=== PATIENT | male | born 1960 | race African-American/Black ===

== ENCOUNTER 2021-06-28 11:02 | Inpatient (IN) | payer OTHER ==
[2021-06-28] MEDS ORDERED: MAGNESIUM HYDROX 2400MG/30ML ORAL SUSPENSION 30 ML CUP PO PRN (13:03)
[2021-06-28] MEDS ORDERED: ONDANSETRON *ODT* 4 MG TABLET SL PRN (13:03)
[2021-06-28] MEDS ORDERED: MAGNESIUM CITRATE 300 ML BOTTLE PO PRN (13:03)
[2021-06-28] MEDS ORDERED: MENTHOL/PHENOL 1 EACH UD MM PRN (13:03)
[2021-06-28] MEDS ORDERED: METHOCARBAMOL 500 MG TABLET PO PRN (13:03)
[2021-06-28] MEDS ORDERED: NICOTINE 10 MG CARTRIDGE (INHALER) IH PRN (13:03)
[2021-06-28] MEDS ORDERED: MAG HYDROX/AL HYDROX/SIMETH 30 ML UNIT-DOSE CUP PO PRN (13:03)
[2021-06-28] MEDS ORDERED: ACETAMINOPHEN 325 MG TABLET (FP) PO PRN ×2 (13:03)
[2021-06-28] MEDS ORDERED: BISMUTH SUBSALICYLATE 262 MG/15 ML BTL PO PRN (13:03)
[2021-06-28] MEDS ORDERED: chlordiazePOXIDE HCL 25 MG CAPSULE PO PRN (13:03)
[2021-06-28] MEDS ORDERED: IBUPROFEN 400 MG TABLET (FP) PO PRN (13:03)
[2021-06-28 13:15] VITALS: BMI 29.5
[2021-06-28 15:12] LABS: HEMATOCRIT 35.6 % (35.4-49); HEMOGLOBIN 12.2 GM/dL (11.7-16.9); MCH 30.4 pg (25.7-33.7); MCHC 34.2 g/dl (32.0-35.9); MEAN PLT VOLUME 10.4 fl (7.5-11.1); PLATELET COUNT 199 10^3/uL (134-434); RBC 3.99 M/mm3 (4.00-5.60); RDW 13.3 % (11.9-15.9)
[2021-06-28 15:23] LABS: CALCIUM 9.1 mg/dL (8.5-10.1)
[2021-06-28 15:24] LABS: ALBUMIN 3.6 g/dl (3.4-5.0); BLOOD UREA NITROGEN 20.4 mg/dL (7-18)
[2021-06-28 15:26] LABS: CREATININE 1.5 mg/dL (0.55-1.3)
[2021-06-28 15:28] LABS: TOT PROT 7.2 g/dl (6.4-8.2)
[2021-06-28 15:30] LABS: BILIRUBIN,TOTAL 0.4 mg/dL (0.2-1)
[2021-06-28] MEDS: hydrOXYzine PAMOATE 25 MG CAPSULE (FP) PO SCH ×3 (15:57→23:00)
[2021-06-28] MEDS: ASPIRIN 81 MG CHEWABLE TABLETS PO SCH (17:51)
[2021-06-28] MEDS: metFORMIN HCL 500 MG TABLET (FP) PO SCH (17:51)
[2021-06-28] MEDS: chlordiazePOXIDE HCL 25 MG CAPSULE PO SCH ×2 (17:51→22:49)
[2021-06-28] MEDS: DIGOXIN 0.125 MG TABLET PO SCH (19:57)
[2021-06-28] MEDS: SPIRONOLACTONE 25 MG TABLET PO SCH (19:57)
[2021-06-28] MEDS: CARVEDILOL 25 MG TABLET (FP) PO SCH (22:49)
[2021-06-28] MEDS: ATORVASTATIN CA 80 MG TABLET (FP) PO SCH (22:49)
[2021-06-28] MEDS: THIAMINE HCL 100 MG TABLET (FP) PO SCH (22:49)
[2021-06-28] MEDS: MELATONIN 5 MG TABLETS PO SCH (23:00)
[2021-06-29] MEDS: chlordiazePOXIDE HCL 25 MG CAPSULE PO SCH ×4 (05:35→22:35)
[2021-06-29] MEDS: hydrOXYzine PAMOATE 25 MG CAPSULE (FP) PO SCH ×5 (05:35→22:36)
[2021-06-29] MEDS: metFORMIN HCL 500 MG TABLET (FP) PO SCH ×2 (06:19→18:05)
[2021-06-29] MEDS: PRENATAL VITAMINS W/ FOLIC ACID TABLET (FP) PO SCH (10:26)
[2021-06-29] MEDS: DIGOXIN 0.125 MG TABLET PO SCH (10:26)
[2021-06-29] MEDS: ASPIRIN 81 MG CHEWABLE TABLETS PO SCH (10:27)
[2021-06-29] MEDS: CARVEDILOL 25 MG TABLET (FP) PO SCH ×2 (10:27→22:35)
[2021-06-29] MEDS: FUROSEMIDE 40 MG TABLET (FP) PO SCH (10:27)
[2021-06-29] MEDS: ATORVASTATIN CA 80 MG TABLET (FP) PO SCH (22:35)
[2021-06-29] MEDS: THIAMINE HCL 100 MG TABLET (FP) PO SCH (22:35)
[2021-06-29] MEDS: MELATONIN 5 MG TABLETS PO SCH (22:36)
[2021-06-30] MEDS: hydrOXYzine PAMOATE 25 MG CAPSULE (FP) PO SCH ×4 (05:19→19:34)
[2021-06-30] MEDS: chlordiazePOXIDE HCL 25 MG CAPSULE PO SCH ×3 (05:19→19:32)
[2021-06-30] MEDS: metFORMIN HCL 500 MG TABLET (FP) PO SCH ×2 (06:10→19:32)
[2021-06-30 10:56] LABS: ALBUMIN 3.5 g/dl (3.4-5.0); BLOOD UREA NITROGEN 17.9 mg/dL (7-18); CALCIUM 9.1 mg/dL (8.5-10.1)
[2021-06-30] MEDS: PRENATAL VITAMINS W/ FOLIC ACID TABLET (FP) PO SCH (10:58)
[2021-06-30 10:59] LABS: CREATININE 1.3 mg/dL (0.55-1.3)
[2021-06-30] MEDS: DIGOXIN 0.125 MG TABLET PO SCH (10:59)
[2021-06-30] MEDS: FUROSEMIDE 40 MG TABLET (FP) PO SCH (10:59)
[2021-06-30 11:00] LABS: TOT PROT 6.8 g/dl (6.4-8.2)
[2021-06-30] MEDS: ASPIRIN 81 MG CHEWABLE TABLETS PO SCH (11:00)
[2021-06-30] MEDS: CARVEDILOL 25 MG TABLET (FP) PO SCH (11:00)
[2021-06-30] MEDS: SPIRONOLACTONE 25 MG TABLET PO SCH (11:00)
[2021-06-30 11:02] LABS: BILIRUBIN,TOTAL 0.6 mg/dL (0.2-1)
[2021-06-30 16:59] VITALS: BP 127/86; PULSE 69; TEMP 98.4
[2021-06-30] MEDS: INSULIN SLIDING SCALE (NOVOLOG) 1 VIAL SQ SCH (19:33)
[2021-07-01] MEDS ORDERED: chlordiazePOXIDE HCL 10 MG CAPSULE PO PRN
[2021-07-01] MEDS: CARVEDILOL 25 MG TABLET (FP) PO SCH (01:05)
[2021-07-01] MEDS: MELATONIN 5 MG TABLETS PO SCH (01:06)
[2021-07-01] MEDS: chlordiazePOXIDE HCL 25 MG CAPSULE PO SCH (01:06)
[2021-07-01] MEDS: ATORVASTATIN CA 80 MG TABLET (FP) PO SCH (01:06)
[2021-07-01] MEDS: THIAMINE HCL 100 MG TABLET (FP) PO SCH (01:07)
[2021-07-01] MEDS: hydrOXYzine PAMOATE 25 MG CAPSULE (FP) PO SCH (01:07)
[2021-07-01] MEDS: INSULIN SLIDING SCALE (NOVOLOG) 1 VIAL SQ SCH (01:07)
[2021-07-01] MEDS ORDERED: chlordiazePOXIDE HCL 10 MG CAPSULE PO SCH (05:00)
[2021-07-02] MEDS ORDERED: chlordiazePOXIDE HCL 10 MG CAPSULE PO SCH (05:00)
[2021-07-03] MEDS ORDERED: chlordiazePOXIDE HCL 10 MG CAPSULE PO ONE (05:00)
== END 2021-07-01 | disposition short-term general hospital (02) | DRG 897 ==
LOC: YASAS 11:02 → Y6N 13:48
PROVIDERS: ADMIT Allergy & Immunology; ATTEND Allergy & Immunology
PROC: HZ2ZZZZ Detoxification Services for Substance Abuse Treatment (ICD-10-PCS; principal; 2021-06-28)
DX: F10.230 Alcohol dependence with withdrawal, uncomplicated (principal); F14.20 Cocaine dependence, uncomplicated; I69.351 Hemiplegia and hemiparesis following cerebral infarction affecting right dominant side; F17.210 Nicotine dependence, cigarettes, uncomplicated; I48.91 Unspecified atrial fibrillation; R06.02 Shortness of breath; E11.65 Type 2 diabetes mellitus with hyperglycemia; R26.2 Difficulty in walking, not elsewhere classified; Z99.89 Dependence on other enabling machines and devices; Z88.8 Allergy status to other drugs, medicaments and biological substances; Z79.84 Long term (current) use of oral hypoglycemic drugs
CPT/HCPCS: 36415; 80053; 82962; 85027; 86780; C9803; U0003; U0005

== ENCOUNTER 2021-06-30 17:10 | Inpatient (IN) | payer OTHER ==
[2021-06-30 17:24] VITALS: BMI 29.5
[2021-06-30] MEDS ORDERED: CEFTRIAXONE 1,000 MG in DEXTROSE 5%-WATER - 50 ML IVPB ONE (18:32)
[2021-06-30] MEDS ORDERED: AZITHROMYCIN IVPB 500 MG in DEXTROSE 5%-WATER - 250 ML IVPB ONE (18:32)
[2021-06-30] MEDS ORDERED: ACETAMINOPHEN 325 MG TABLET (FP) PO ONE (18:35)
[2021-06-30 18:57] LABS: EOS % 2.9 % (0-4.5); HEMATOCRIT 35.9 % (35.4-49); HEMOGLOBIN 12.1 GM/dL (11.7-16.9); LYMPH % 14.7 % (8-40); MCH 30.1 pg (25.7-33.7); MCHC 33.6 g/dl (32.0-35.9); MEAN CELL VOLUME 89.5 fl (80-96); MEAN PLT VOLUME 10.2 fl (7.5-11.1); MONO % 8.7 % (3.8-10.2); NEUT % 72.7 % (42.8-82.8); PLATELET COUNT 173 10^3/uL (134-434); RBC 4.01 M/mm3 (4.00-5.60); RDW 13.6 % (11.9-15.9); VENOUS BASE EXCESS 4.3 mmol/L (-2-2); VENOUS O2 SATURATION 37.7 % (70-80); VENOUS PCO2 56.7 mmHg (38-52); VENOUS PH 7.358 (7.310-7.410)
[2021-06-30] MEDS ORDERED: ACETAMINOPHEN 325 MG TABLET (FP) ONE (19:01)
[2021-06-30] MEDS ORDERED: CEFTRIAXONE 1 GM/50 ML BAG ONE (19:01)
[2021-06-30 19:06] LABS: INR 1.19 (0.83-1.09); PROTHROMBIN TIME (PATIENT) 13.3 SEC (9.7-13.0)
[2021-06-30 19:09] LABS: ACTIVATED PTT 32.8 SECONDS (25.2-36.5)
[2021-06-30 19:20] LABS: SODIUM 143 mmol/L (136-145)
[2021-06-30 19:25] LABS: ALBUMIN 3.6 g/dl (3.4-5.0); BLOOD UREA NITROGEN 19.8 mg/dL (7-18); CALCIUM 9.8 mg/dL (8.5-10.1); CO2 33 mmol/L (21-32); GLUCOSE,RANDOM 160 mg/dL (74-106)
[2021-06-30 19:28] LABS: CREATININE 1.3 mg/dL (0.55-1.3); SGOT/AST 24 U/L (15-37); SGPT/ALT 54 U/L (13-61)
[2021-06-30 19:29] LABS: BILIRUBIN,TOTAL 0.8 mg/dL (0.2-1); TOT PROT 7.2 g/dl (6.4-8.2)
[2021-06-30 19:31] LABS: ALK PHOS 83 U/L (45-117)
[2021-06-30 19:34] LABS: N-TERMINAL BNP 3093.3 pg/ml (5-125)
[2021-06-30 19:49] LABS: ANION GAP 4 MMOL/L (8-16); CHLORIDE 106 mmol/L (98-107)
[2021-06-30] MEDS ORDERED: ASPIRIN 81 MG CHEWABLE TABLETS PO ONE (20:00)
[2021-06-30 20:05] LABS: PLATELET ESTIMATE NORMAL
[2021-06-30] MEDS ORDERED: ASPIRIN 81 MG CHEWABLE TABLETS ONE (20:10)
[2021-06-30] MEDS ORDERED: AZITHROMYCIN IVPB 500 MG/250 ML BAG IVPB ONE (20:10)
[2021-06-30] MEDS ORDERED: FUROSEMIDE 40 MG/4 ML INJECTABLE VIAL IVPUSH ONE (20:14)
[2021-06-30] MEDS ORDERED: FUROSEMIDE 40 MG/4 ML INJECTABLE VIAL ONE (20:18)
[2021-06-30] MEDS ORDERED: chlordiazePOXIDE HCL 10 MG CAPSULE PO PRN ×2 (22:57→23:50)
[2021-07-01 02:12] LABS: COCAINE, UR POSITIVE (NEGATIVE); METHADONE, UR NEGATIVE (NEGATIVE); OPIATES, URI NEGATIVE (NEGATIVE); PHENCYCLIDINE,URINE NEGATIVE (NEGATIVE); URINE AMPHETAMINES NEGATIVE (NEGATIVE); URINE BARBITURATES NEGATIVE (NEGATIVE); URINE BENZODIAZEPINES POSITIVE (NEGATIVE)
[2021-07-01 07:50] LABS: HEMOGLOBIN 11.7 GM/dL (11.7-16.9); LYMPH % 17.9 % (8-40); MCH 30.5 pg (25.7-33.7); MCHC 34.4 g/dl (32.0-35.9); MEAN CELL VOLUME 88.6 fl (80-96); MEAN PLT VOLUME 10.2 fl (7.5-11.1); NEUT % 67.7 % (42.8-82.8); PLATELET COUNT 164 10^3/uL (134-434); RBC 3.84 M/mm3 (4.00-5.60); RDW 13.4 % (11.9-15.9); WHITE BLOOD COUNT 4.9 K/mm3 (4.0-10.0)
[2021-07-01 07:51] LABS: BASO % 1.5 % (0-2.0); EOS % 3.5 % (0-4.5); MONO % 9.4 % (3.8-10.2)
[2021-07-01 08:09] LABS: CHLORIDE 105 mmol/L (98-107); SODIUM 142 mmol/L (136-145)
[2021-07-01 08:16] LABS: ANION GAP 7 MMOL/L (8-16); BLOOD UREA NITROGEN 17.5 mg/dL (7-18); CO2 30 mmol/L (21-32); GLUCOSE,RANDOM 254 mg/dL (74-106); MAGNESIUM 1.8 mg/dL (1.8-2.4)
[2021-07-01 08:18] LABS: SGPT/ALT 49 U/L (13-61)
[2021-07-01 08:19] LABS: CHOLESTEROL 108 mg/dL (50-200); CREATININE 1.4 mg/dL (0.55-1.3); PHOSPHOROUS 3.6 mg/dL (2.5-4.9); SGOT/AST 23 U/L (15-37)
[2021-07-01 08:20] LABS: BILIRUBIN,TOTAL 0.8 mg/dL (0.2-1); LDL CHOLESTEROL (ONLY SJRH) 55 mg/dL (5-100); TOT PROT 6.6 g/dl (6.4-8.2); TRIGLYCERIDES 119 mg/dL (0-150)
[2021-07-01 08:21] LABS: ALK PHOS 70 U/L (45-117); HDL CHOLESTEROL 36 mg/dL (40-60)
[2021-07-01] MEDS ORDERED: CYANOCOBALAMIN (VITAMIN B-12) 1000 MCG/1 ML VIAL IM ONE (08:30)
[2021-07-01] MEDS ORDERED: ENOXAPARIN NA (PORCINE) 40 MG/0.4 ML DISP.SYRIN SQ SCH (10:00)
[2021-07-01] MEDS ORDERED: FUROSEMIDE 40 MG TABLET (FP) ONE (10:08)
[2021-07-01] MEDS ORDERED: DIGOXIN 0.125 MG TABLET ONE (10:08)
[2021-07-01] MEDS ORDERED: FOLIC ACID 1 MG TABLET (FP) ONE (10:08)
[2021-07-01] MEDS ORDERED: ASPIRIN 81 MG CHEWABLE TABLETS ONE (10:08)
[2021-07-01] MEDS ORDERED: THIAMINE HCL 100 MG TABLET (FP) ONE (10:08)
[2021-07-01] MEDS ORDERED: HEPARIN NA (PORCINE) 5,000 UNITS/ML 1ML VIAL ONE (10:09)
[2021-07-01] MEDS ORDERED: INSULIN SLIDING SCALE (NOVOLOG) 1 VIAL SQ ONE (10:09)
[2021-07-01] MEDS: ASPIRIN 81 MG CHEWABLE TABLETS PO SCH (10:30)
[2021-07-01] MEDS: FOLIC ACID 1 MG TABLET (FP) PO SCH (10:30)
[2021-07-01] MEDS: FUROSEMIDE 40 MG TABLET (FP) PO SCH (10:30)
[2021-07-01] MEDS: THIAMINE HCL 100 MG TABLET (FP) PO SCH (10:30)
[2021-07-01] MEDS: CARVEDILOL 25 MG TABLET (FP) PO SCH (10:30)
[2021-07-01] MEDS: DIGOXIN 0.125 MG TABLET PO SCH (10:30)
[2021-07-01] MEDS: NICOTINE 21 MG/24 HOURS TOPICAL PATCH TD SCH (10:30)
[2021-07-01] MEDS: INSULIN SLIDING SCALE (NOVOLOG) 1 VIAL SQ SCH ×2 (11:16→17:33)
[2021-07-01] MEDS: HEPARIN NA (PORCINE) 5,000 UNITS/ML 1ML VIAL SQ SCH (14:30)
[2021-07-01] MEDS ORDERED: chlordiazePOXIDE HCL 10 MG CAPSULE ONE (17:27)
[2021-07-01] MEDS ORDERED: CARVEDILOL 12.5 MG TABLET (FP) ONE (23:53)
[2021-07-01] MEDS ORDERED: ATORVASTATIN CA 80 MG TABLET (FP) ONE (23:53)
[2021-07-02] MEDS: ATORVASTATIN CA 80 MG TABLET (FP) PO SCH ×2 (00:01→21:35)
[2021-07-02] MEDS: CARVEDILOL 25 MG TABLET (FP) PO SCH ×3 (00:16→21:34)
[2021-07-02] MEDS: HEPARIN NA (PORCINE) 5,000 UNITS/ML 1ML VIAL SQ SCH ×5 (01:30→21:34)
[2021-07-02] MEDS: ALBUTEROL SO4 2.5/IPRATROPIUM 0.5 INH SOL 3 ML VIAL.NEB. NEB SCH ×6 (01:30→20:48)
[2021-07-02] MEDS: INSULIN SLIDING SCALE (NOVOLOG) 1 VIAL SQ SCH ×6 (01:30→21:41)
[2021-07-02] MEDS: SPIRONOLACTONE 25 MG TABLET PO SCH (01:31)
[2021-07-02] MEDS ORDERED: HEPARIN NA (PORCINE) 5,000 UNITS/ML 1ML VIAL ONE (01:50)
[2021-07-02 07:24] LABS: HEMOGLOBIN 11.7 GM/dL (11.7-16.9); MCH 30.2 pg (25.7-33.7); MCHC 34.3 g/dl (32.0-35.9); MEAN CELL VOLUME 88.1 fl (80-96); PLATELET COUNT 166 10^3/uL (134-434); RBC 3.86 M/mm3 (4.00-5.60); RDW 13.3 % (11.9-15.9); WHITE BLOOD COUNT 4.3 K/mm3 (4.0-10.0)
[2021-07-02 07:30] LABS: CALCIUM 8.9 mg/dL (8.5-10.1)
[2021-07-02 07:31] LABS: BLOOD UREA NITROGEN 19.1 mg/dL (7-18)
[2021-07-02 07:34] LABS: CREATININE 1.5 mg/dL (0.55-1.3)
[2021-07-02 07:35] LABS: BILIRUBIN,TOTAL 0.7 mg/dL (0.2-1); TOT PROT 6.4 g/dl (6.4-8.2)
[2021-07-02] MEDS ORDERED: PT OWN MED DRAWER 7, Y5N ONE ×2 (08:47→18:32)
[2021-07-02] MEDS ORDERED: FLU VACC QS2021-22(6MOS UP)/PF 60 MCG/0.5 ML SYRINGE IM ONE (10:00)
[2021-07-02] MEDS: DIGOXIN 0.125 MG TABLET PO SCH (10:05)
[2021-07-02] MEDS: THIAMINE HCL 100 MG TABLET (FP) PO SCH (10:05)
[2021-07-02] MEDS: FOLIC ACID 1 MG TABLET (FP) PO SCH (10:05)
[2021-07-02] MEDS: ASPIRIN 81 MG CHEWABLE TABLETS PO SCH (10:05)
[2021-07-02] MEDS: FUROSEMIDE 40 MG TABLET (FP) PO SCH (10:05)
[2021-07-02] MEDS: NICOTINE 21 MG/24 HOURS TOPICAL PATCH TD SCH (10:06)
[2021-07-02] MEDS ORDERED: MAGNESIUM SULF 50% (8.12 MEQ/2 ML-1 GM VIAL) IVPB ONE (10:44)
[2021-07-02] MEDS: FUROSEMIDE 40 MG/4 ML INJECTABLE VIAL IVPUSH SCH (14:13)
[2021-07-03] MEDS: SPIRONOLACTONE 25 MG TABLET PO SCH (00:39)
[2021-07-03] MEDS: HEPARIN NA (PORCINE) 5,000 UNITS/ML 1ML VIAL SQ SCH ×3 (06:43→21:51)
[2021-07-03] MEDS: FUROSEMIDE 40 MG/4 ML INJECTABLE VIAL IVPUSH SCH ×2 (06:43→13:37)
[2021-07-03] MEDS: INSULIN SLIDING SCALE (NOVOLOG) 1 VIAL SQ SCH ×4 (06:43→21:56)
[2021-07-03 07:31] LABS: HEMATOCRIT 34.7 % (35.4-49); MCH 30.4 pg (25.7-33.7); MCHC 34.5 g/dl (32.0-35.9); MEAN CELL VOLUME 88.1 fl (80-96); MEAN PLT VOLUME 9.8 fl (7.5-11.1); PLATELET COUNT 161 10^3/uL (134-434); RBC 3.94 M/mm3 (4.00-5.60); WHITE BLOOD COUNT 4.2 K/mm3 (4.0-10.0)
[2021-07-03] MEDS: ALBUTEROL SO4 2.5/IPRATROPIUM 0.5 INH SOL 3 ML VIAL.NEB. NEB SCH ×4 (07:45→21:45)
[2021-07-03 07:53] LABS: BLOOD UREA NITROGEN 20.1 mg/dL (7-18); CALCIUM 8.8 mg/dL (8.5-10.1); MAGNESIUM 2.2 mg/dL (1.8-2.4)
[2021-07-03 07:54] LABS: ALBUMIN 3.3 g/dl (3.4-5.0)
[2021-07-03 07:57] LABS: CREATININE 1.3 mg/dL (0.55-1.3); PHOSPHOROUS 3.6 mg/dL (2.5-4.9)
[2021-07-03 07:58] LABS: BILIRUBIN,TOTAL 0.7 mg/dL (0.2-1); TOT PROT 6.6 g/dl (6.4-8.2)
[2021-07-03] MEDS: ASPIRIN 81 MG CHEWABLE TABLETS PO SCH (09:39)
[2021-07-03] MEDS: THIAMINE HCL 100 MG TABLET (FP) PO SCH (09:39)
[2021-07-03] MEDS: NICOTINE 21 MG/24 HOURS TOPICAL PATCH TD SCH (09:40)
[2021-07-03] MEDS: DIGOXIN 0.125 MG TABLET PO SCH (09:40)
[2021-07-03] MEDS: CARVEDILOL 25 MG TABLET (FP) PO SCH ×2 (09:42→21:52)
[2021-07-03] MEDS: FOLIC ACID 1 MG TABLET (FP) PO SCH (10:08)
[2021-07-03] MEDS: ATORVASTATIN CA 80 MG TABLET (FP) PO SCH (21:52)
[2021-07-04] MEDS: HEPARIN NA (PORCINE) 5,000 UNITS/ML 1ML VIAL SQ SCH ×3 (06:12→22:05)
[2021-07-04] MEDS: INSULIN SLIDING SCALE (NOVOLOG) 1 VIAL SQ SCH ×5 (06:12→22:21)
[2021-07-04] MEDS: FUROSEMIDE 40 MG/4 ML INJECTABLE VIAL IVPUSH SCH ×2 (06:12→15:02)
[2021-07-04 07:35] LABS: ALBUMIN 3.2 g/dl (3.4-5.0); BLOOD UREA NITROGEN 19.5 mg/dL (7-18); CALCIUM 8.7 mg/dL (8.5-10.1)
[2021-07-04 07:38] LABS: CREATININE 1.5 mg/dL (0.55-1.3)
[2021-07-04 07:40] LABS: BILIRUBIN,TOTAL 0.8 mg/dL (0.2-1)
[2021-07-04 08:15] LABS: HEMATOCRIT 35.9 % (35.4-49); HEMOGLOBIN 12.5 GM/dL (11.7-16.9); MCH 30.6 pg (25.7-33.7); MCHC 34.8 g/dl (32.0-35.9); MEAN PLT VOLUME 9.9 fl (7.5-11.1); PLATELET COUNT 166 10^3/uL (134-434); RBC 4.08 M/mm3 (4.00-5.60); RDW 13.1 % (11.9-15.9); WHITE BLOOD COUNT 3.4 K/mm3 (4.0-10.0)
[2021-07-04] MEDS: ALBUTEROL SO4 2.5/IPRATROPIUM 0.5 INH SOL 3 ML VIAL.NEB. NEB SCH ×4 (08:30→20:55)
[2021-07-04] MEDS: ASPIRIN 81 MG CHEWABLE TABLETS PO SCH (10:29)
[2021-07-04] MEDS: THIAMINE HCL 100 MG TABLET (FP) PO SCH (10:30)
[2021-07-04] MEDS: FOLIC ACID 1 MG TABLET (FP) PO SCH (10:30)
[2021-07-04] MEDS: NICOTINE 21 MG/24 HOURS TOPICAL PATCH TD SCH (10:30)
[2021-07-04] MEDS: DIGOXIN 0.125 MG TABLET PO SCH (10:30)
[2021-07-04] MEDS: CARVEDILOL 25 MG TABLET (FP) PO SCH ×2 (10:30→22:06)
[2021-07-04] MEDS ORDERED: ACETAMINOPHEN 325 MG TABLET (FP) PO PRN (11:18)
[2021-07-04] MEDS: ATORVASTATIN CA 80 MG TABLET (FP) PO SCH (22:06)
[2021-07-05] MEDS: FUROSEMIDE 40 MG/4 ML INJECTABLE VIAL IVPUSH SCH ×2 (05:42→14:17)
[2021-07-05] MEDS: HEPARIN NA (PORCINE) 5,000 UNITS/ML 1ML VIAL SQ SCH ×3 (05:52→21:20)
[2021-07-05] MEDS: INSULIN SLIDING SCALE (NOVOLOG) 1 VIAL SQ SCH ×4 (06:33→23:00)
[2021-07-05 07:13] LABS: HEMATOCRIT 36.5 % (35.4-49); HEMOGLOBIN 12.5 GM/dL (11.7-16.9); MCH 30.4 pg (25.7-33.7); MCHC 34.3 g/dl (32.0-35.9); MEAN CELL VOLUME 88.7 fl (80-96); MEAN PLT VOLUME 10.2 fl (7.5-11.1); PLATELET COUNT 184 10^3/uL (134-434); RBC 4.12 M/mm3 (4.00-5.60); RDW 13.2 % (11.9-15.9); WHITE BLOOD COUNT 3.2 K/mm3 (4.0-10.0)
[2021-07-05 07:33] LABS: BLOOD UREA NITROGEN 27.6 mg/dL (7-18); MAGNESIUM 2.3 mg/dL (1.8-2.4)
[2021-07-05 07:34] LABS: ALBUMIN 3.2 g/dl (3.4-5.0)
[2021-07-05 07:36] LABS: PHOSPHOROUS 4.1 mg/dL (2.5-4.9)
[2021-07-05 07:37] LABS: CREATININE 1.4 mg/dL (0.55-1.3)
[2021-07-05 07:38] LABS: TOT PROT 6.7 g/dl (6.4-8.2)
[2021-07-05 08:05] LABS: BILIRUBIN,TOTAL 0.7 mg/dL (0.2-1)
[2021-07-05] MEDS: ALBUTEROL SO4 2.5/IPRATROPIUM 0.5 INH SOL 3 ML VIAL.NEB. NEB SCH ×4 (09:00→20:27)
[2021-07-05] MEDS: ASPIRIN 81 MG CHEWABLE TABLETS PO SCH (10:30)
[2021-07-05] MEDS: CARVEDILOL 25 MG TABLET (FP) PO SCH ×2 (10:30→21:20)
[2021-07-05] MEDS: NICOTINE 21 MG/24 HOURS TOPICAL PATCH TD SCH (10:30)
[2021-07-05] MEDS: THIAMINE HCL 100 MG TABLET (FP) PO SCH (10:30)
[2021-07-05] MEDS: DIGOXIN 0.125 MG TABLET PO SCH (10:31)
[2021-07-05] MEDS: FOLIC ACID 1 MG TABLET (FP) PO SCH (10:31)
[2021-07-05] MEDS: SPIRONOLACTONE 25 MG TABLET PO SCH (12:38)
[2021-07-05] MEDS: hydrALAZINE HCL 25 MG TABLET (FP) PO SCH ×2 (17:30→21:20)
[2021-07-05] MEDS: ATORVASTATIN CA 80 MG TABLET (FP) PO SCH (21:20)
[2021-07-06] MEDS: SPIRONOLACTONE 25 MG TABLET PO SCH (00:41)
[2021-07-06] MEDS: HEPARIN NA (PORCINE) 5,000 UNITS/ML 1ML VIAL SQ SCH ×3 (06:36→22:20)
[2021-07-06] MEDS: INSULIN SLIDING SCALE (NOVOLOG) 1 VIAL SQ SCH ×4 (06:37→22:21)
[2021-07-06] MEDS: ALBUTEROL SO4 2.5/IPRATROPIUM 0.5 INH SOL 3 ML VIAL.NEB. NEB SCH ×4 (07:40→20:30)
[2021-07-06] MEDS: NICOTINE 21 MG/24 HOURS TOPICAL PATCH TD SCH (09:41)
[2021-07-06] MEDS: ISOSORBIDE MONONITRATE 30 MG TAB.SR.24H (FP) PO SCH (09:41)
[2021-07-06] MEDS: DIGOXIN 0.125 MG TABLET PO SCH (09:42)
[2021-07-06] MEDS: hydrALAZINE HCL 25 MG TABLET (FP) PO SCH ×4 (09:42→22:20)
[2021-07-06] MEDS: ASPIRIN 81 MG CHEWABLE TABLETS PO SCH (09:43)
[2021-07-06] MEDS: CARVEDILOL 25 MG TABLET (FP) PO SCH ×2 (09:43→22:20)
[2021-07-06] MEDS: THIAMINE HCL 100 MG TABLET (FP) PO SCH (09:43)
[2021-07-06] MEDS: FOLIC ACID 1 MG TABLET (FP) PO SCH (09:44)
[2021-07-06] MEDS: FUROSEMIDE 40 MG TABLET (FP) PO SCH (09:44)
[2021-07-06] MEDS: ATORVASTATIN CA 80 MG TABLET (FP) PO SCH (22:21)
[2021-07-07] MEDS: HEPARIN NA (PORCINE) 5,000 UNITS/ML 1ML VIAL SQ SCH ×2 (06:28→15:08)
[2021-07-07] MEDS: INSULIN SLIDING SCALE (NOVOLOG) 1 VIAL SQ SCH ×2 (06:28→12:23)
[2021-07-07] MEDS: ALBUTEROL SO4 2.5/IPRATROPIUM 0.5 INH SOL 3 ML VIAL.NEB. NEB SCH ×3 (07:43→15:20)
[2021-07-07] MEDS ORDERED: PT OWN MED DRAWER 7, Y5N ONE (11:14)
[2021-07-07] MEDS: ISOSORBIDE MONONITRATE 30 MG TAB.SR.24H (FP) PO SCH ×2 (11:23→12:19)
[2021-07-07] MEDS: ASPIRIN 81 MG CHEWABLE TABLETS PO SCH (11:23)
[2021-07-07] MEDS: FOLIC ACID 1 MG TABLET (FP) PO SCH (11:23)
[2021-07-07] MEDS: hydrALAZINE HCL 25 MG TABLET (FP) PO SCH ×2 (11:23→15:08)
[2021-07-07] MEDS: CARVEDILOL 25 MG TABLET (FP) PO SCH (11:23)
[2021-07-07] MEDS: DIGOXIN 0.125 MG TABLET PO SCH (11:24)
[2021-07-07] MEDS: FUROSEMIDE 40 MG TABLET (FP) PO SCH (11:30)
[2021-07-07] MEDS: THIAMINE HCL 100 MG TABLET (FP) PO SCH (11:30)
[2021-07-07] MEDS: NICOTINE 21 MG/24 HOURS TOPICAL PATCH TD SCH (11:30)
[2021-07-07] MEDS: SPIRONOLACTONE 25 MG TABLET PO SCH (12:19)
[2021-07-07 14:00] VITALS: TEMP 98
[2021-07-07 16:15] VITALS: BP 120/74; PULSE 78
== END 2021-07-07 17:56 | disposition home or self-care (01) | DRG 280 ==
LOC: JER 17:10 → JERBED 21:06 → INTOOBSV 21:06 → J4W 07-02 03:01 → OBSVTOIN 07-02 14:49
PROVIDERS: ATTEND Internal Medicine
DX: I13.0 Hypertensive heart and chronic kidney disease with heart failure and stage 1 through stage 4 chronic kidney disease, or unspecified chronic kidney disease (principal); I21.A1 Myocardial infarction type 2; J96.01 Acute respiratory failure with hypoxia; I50.33 Acute on chronic diastolic (congestive) heart failure; I69.351 Hemiplegia and hemiparesis following cerebral infarction affecting right dominant side; J44.1 Chronic obstructive pulmonary disease with (acute) exacerbation; J81.1 Chronic pulmonary edema; I42.8 Other cardiomyopathies; E11.9 Type 2 diabetes mellitus without complications; F14.10 Cocaine abuse, uncomplicated; F10.10 Alcohol abuse, uncomplicated; I48.91 Unspecified atrial fibrillation; R91.1 Solitary pulmonary nodule; N43.3 Hydrocele, unspecified; R76.12 Nonspecific reaction to cell mediated immunity measurement of gamma interferon antigen response without active tuberculosis; F17.210 Nicotine dependence, cigarettes, uncomplicated; I69.391 Dysphagia following cerebral infarction; N50.9 Disorder of male genital organs, unspecified; E11.22 Type 2 diabetes mellitus with diabetic chronic kidney disease; N18.9 Chronic kidney disease, unspecified
CPT/HCPCS: 36415; 71045-TC-FY; 71250-TC; 76705-TC; 76870-TC; 80053; 80061; 80162; 80307; 82105; 82550; 82607; 82803; 82962; 83036; 83615; 83735; 83880; 84100; 84484; 84702; 85025; 85027; 85610; 85730; 86480; 87804; 90686; 93005; 93010; 93306-TC; 94640; 99285-25; C9803; G0008; G0378; J1644; U0003; U0005

== ENCOUNTER 2021-07-07 17:43 | Inpatient (IN) | payer OTHER ==
[2021-07-07] MEDS ORDERED: guaiFENesin 200 MG/10 ML 10 ML UNIT-DOSE CUPS PO PRN (19:29)
[2021-07-07] MEDS ORDERED: MAGNESIUM CITRATE 300 ML BOTTLE PO PRN (19:29)
[2021-07-07] MEDS ORDERED: MAGNESIUM HYDROX 2400MG/30ML ORAL SUSPENSION 30 ML CUP PO PRN (19:29)
[2021-07-07] MEDS ORDERED: LOPERAMIDE HCL 2 MG CAPSULE PO PRN (19:29)
[2021-07-07] MEDS ORDERED: P-EPHED 60MG/TRIPROLIDI 2.5MG TABLET PO PRN (19:29)
[2021-07-07] MEDS ORDERED: MAG HYDROX/AL HYDROX/SIMETH 30 ML UNIT-DOSE CUP PO PRN (19:29)
[2021-07-07] MEDS ORDERED: hydrOXYzine PAMOATE 25 MG CAPSULE (FP) PO PRN (19:29)
[2021-07-07 20:16] VITALS: BMI 28.2
[2021-07-08] MEDS: INSULIN SLIDING SCALE (NOVOLOG) 1 VIAL SQ SCH ×3 (00:34→17:05)
[2021-07-08] MEDS: ATORVASTATIN CA 80 MG TABLET (FP) PO SCH ×2 (00:35→22:11)
[2021-07-08] MEDS: hydrALAZINE HCL 25 MG TABLET (FP) PO SCH ×5 (00:35→22:14)
[2021-07-08] MEDS: SPIRONOLACTONE 25 MG TABLET PO SCH (00:35)
[2021-07-08] MEDS: THIAMINE HCL 100 MG TABLET (FP) PO SCH ×2 (00:36→22:10)
[2021-07-08] MEDS: MELATONIN 5 MG TABLETS PO SCH ×2 (00:36→22:10)
[2021-07-08] MEDS: CARVEDILOL 25 MG TABLET (FP) PO SCH ×3 (01:14→22:13)
[2021-07-08] MEDS ORDERED: INSULIN (NOVOLOG) ASPART 100 UNITS/ML 10ML VIAL ONE ×3 (02:55→17:00)
[2021-07-08] MEDS: metFORMIN HCL 500 MG TABLET (FP) PO SCH ×2 (06:51→17:03)
[2021-07-08] MEDS ORDERED: FUROSEMIDE 40 MG TABLET (FP) PO SCH (10:00)
[2021-07-08] MEDS: ASPIRIN 81 MG CHEWABLE TABLETS PO SCH (10:37)
[2021-07-08] MEDS: NICOTINE 7 MG/24 HOURS TOPICAL PATCH TD SCH (10:40)
[2021-07-08] MEDS: PRENATAL VITAMINS W/ FOLIC ACID TABLET (FP) PO SCH (10:44)
[2021-07-08] MEDS: ISOSORBIDE MONONITRATE 30 MG TAB.SR.24H (FP) PO SCH (11:29)
[2021-07-08] MEDS: DIGOXIN 0.125 MG TABLET PO SCH (11:30)
[2021-07-08] MEDS: glipiZIDE-XL 2.5 MG TAB.ER.24 PO SCH ×2 (12:15→17:03)
[2021-07-09] MEDS: metFORMIN HCL 500 MG TABLET (FP) PO SCH ×2 (06:27→16:59)
[2021-07-09] MEDS: glipiZIDE-XL 2.5 MG TAB.ER.24 PO SCH ×2 (06:28→17:00)
[2021-07-09] MEDS: INSULIN SLIDING SCALE (NOVOLOG) 1 VIAL SQ SCH ×2 (06:29→16:57)
[2021-07-09] MEDS: FUROSEMIDE 40 MG TABLET (FP) PO SCH (06:30)
[2021-07-09] MEDS ORDERED: PT OWN MED DRAWER 7, Y5N ONE (09:34)
[2021-07-09] MEDS: hydrALAZINE HCL 25 MG TABLET (FP) PO SCH ×4 (09:50→21:15)
[2021-07-09] MEDS: CARVEDILOL 25 MG TABLET (FP) PO SCH ×2 (09:50→21:14)
[2021-07-09] MEDS: PRENATAL VITAMINS W/ FOLIC ACID TABLET (FP) PO SCH (09:50)
[2021-07-09] MEDS: ASPIRIN 81 MG CHEWABLE TABLETS PO SCH (09:50)
[2021-07-09] MEDS: DIGOXIN 0.125 MG TABLET PO SCH (09:51)
[2021-07-09] MEDS: NICOTINE 7 MG/24 HOURS TOPICAL PATCH TD SCH (09:52)
[2021-07-09] MEDS: ISOSORBIDE MONONITRATE 30 MG TAB.SR.24H (FP) PO SCH (09:52)
[2021-07-09 16:08] LABS: EPI CELLS 1 /uL (0-25.1); HYALINE CASTS 1 /uL (0-3.1); URINE APPEARANCE CLEAR; URINE BACTERIA 1 /uL (0-1359); URINE BILIRUBIN NEGATIVE (NEGATIVE); URINE COLOR YELLOW; URINE GLUCOSE (UA) TRACE (NEGATIVE); URINE KETONE NEGATIVE (NEGATIVE); URINE LEUK ESTERASE TRACE (NEGATIVE); URINE NITRITE NEGATIVE (NEGATIVE); URINE PROTEIN NEGATIVE (NEGATIVE); URINE RBC 0 /uL (0-23.9); URINE UROBILINOGEN 0.2 mg/dL (0.2-1.0); URINE WBC 9 /uL (0-25.8)
[2021-07-09] MEDS ORDERED: INSULIN (NOVOLOG) ASPART 100 UNITS/ML 10ML VIAL ONE (16:53)
[2021-07-09] MEDS: SPIRONOLACTONE 25 MG TABLET PO SCH (18:49)
[2021-07-09] MEDS ORDERED: ATORVASTATIN CA 40 MG TABLET (FP) ONE (19:14)
[2021-07-09] MEDS: ATORVASTATIN CA 80 MG TABLET (FP) PO SCH (21:14)
[2021-07-09] MEDS: MELATONIN 5 MG TABLETS PO SCH (21:14)
[2021-07-09] MEDS: THIAMINE HCL 100 MG TABLET (FP) PO SCH (21:14)
[2021-07-10] MEDS: FUROSEMIDE 40 MG TABLET (FP) PO SCH (06:42)
[2021-07-10] MEDS: metFORMIN HCL 500 MG TABLET (FP) PO SCH ×2 (06:43→18:02)
[2021-07-10] MEDS: glipiZIDE-XL 2.5 MG TAB.ER.24 PO SCH ×2 (06:43→17:59)
[2021-07-10] MEDS: INSULIN SLIDING SCALE (NOVOLOG) 1 VIAL SQ SCH ×2 (06:43→17:59)
[2021-07-10] MEDS: PRENATAL VITAMINS W/ FOLIC ACID TABLET (FP) PO SCH (10:12)
[2021-07-10] MEDS: ISOSORBIDE MONONITRATE 30 MG TAB.SR.24H (FP) PO SCH (10:13)
[2021-07-10] MEDS: CARVEDILOL 25 MG TABLET (FP) PO SCH ×2 (10:13→21:06)
[2021-07-10] MEDS: hydrALAZINE HCL 25 MG TABLET (FP) PO SCH ×4 (10:13→21:06)
[2021-07-10] MEDS: DIGOXIN 0.125 MG TABLET PO SCH (10:13)
[2021-07-10] MEDS: ASPIRIN 81 MG CHEWABLE TABLETS PO SCH (10:13)
[2021-07-10 10:50] LABS: BLOOD UREA NITROGEN 23.4 mg/dL (7-18)
[2021-07-10 10:53] LABS: CREATININE 1.3 mg/dL (0.55-1.3)
[2021-07-10] MEDS: NICOTINE 7 MG/24 HOURS TOPICAL PATCH TD SCH (11:46)
[2021-07-10] MEDS ORDERED: ATORVASTATIN CA 40 MG TABLET (FP) ONE (19:25)
[2021-07-10] MEDS: MELATONIN 5 MG TABLETS PO SCH (21:06)
[2021-07-10] MEDS: THIAMINE HCL 100 MG TABLET (FP) PO SCH (21:06)
[2021-07-10] MEDS: ATORVASTATIN CA 80 MG TABLET (FP) PO SCH (21:06)
[2021-07-11] MEDS: FUROSEMIDE 40 MG TABLET (FP) PO SCH (07:05)
[2021-07-11] MEDS ORDERED: INSULIN (NOVOLOG) ASPART 100 UNITS/ML 10ML VIAL ONE ×2 (07:06→14:50)
[2021-07-11] MEDS: glipiZIDE-XL 2.5 MG TAB.ER.24 PO SCH ×2 (07:06→17:01)
[2021-07-11] MEDS: metFORMIN HCL 500 MG TABLET (FP) PO SCH ×2 (07:06→17:01)
[2021-07-11] MEDS: INSULIN SLIDING SCALE (NOVOLOG) 1 VIAL SQ SCH ×2 (07:07→17:04)
[2021-07-11] MEDS ORDERED: PT OWN MED DRAWER 7, Y5N ONE (08:41)
[2021-07-11] MEDS: ASPIRIN 81 MG CHEWABLE TABLETS PO SCH (09:50)
[2021-07-11] MEDS: hydrALAZINE HCL 25 MG TABLET (FP) PO SCH ×4 (09:50→21:12)
[2021-07-11] MEDS: CARVEDILOL 25 MG TABLET (FP) PO SCH ×2 (09:50→21:11)
[2021-07-11] MEDS: PRENATAL VITAMINS W/ FOLIC ACID TABLET (FP) PO SCH (09:50)
[2021-07-11] MEDS: DIGOXIN 0.125 MG TABLET PO SCH (09:51)
[2021-07-11] MEDS: ISOSORBIDE MONONITRATE 30 MG TAB.SR.24H (FP) PO SCH (09:51)
[2021-07-11] MEDS: NICOTINE 7 MG/24 HOURS TOPICAL PATCH TD SCH (09:56)
[2021-07-11] MEDS: ACETAMINOPHEN 325 MG TABLET (FP) PO PRN ×2 (12:45→17:01)
[2021-07-11] MEDS ORDERED: ATORVASTATIN CA 40 MG TABLET (FP) ONE (19:17)
[2021-07-11] MEDS: ATORVASTATIN CA 80 MG TABLET (FP) PO SCH (21:12)
[2021-07-11] MEDS: MELATONIN 5 MG TABLETS PO SCH (21:12)
[2021-07-11] MEDS: THIAMINE HCL 100 MG TABLET (FP) PO SCH (21:12)
[2021-07-12] MEDS: FUROSEMIDE 40 MG TABLET (FP) PO SCH (06:38)
[2021-07-12] MEDS: metFORMIN HCL 500 MG TABLET (FP) PO SCH ×2 (06:38→17:28)
[2021-07-12] MEDS: glipiZIDE-XL 2.5 MG TAB.ER.24 PO SCH ×2 (06:38→17:28)
[2021-07-12] MEDS: INSULIN SLIDING SCALE (NOVOLOG) 1 VIAL SQ SCH ×2 (06:40→17:29)
[2021-07-12] MEDS: ASPIRIN 81 MG CHEWABLE TABLETS PO SCH (09:40)
[2021-07-12] MEDS: CARVEDILOL 25 MG TABLET (FP) PO SCH ×2 (09:40→21:47)
[2021-07-12] MEDS: hydrALAZINE HCL 25 MG TABLET (FP) PO SCH ×4 (09:40→21:47)
[2021-07-12] MEDS: PRENATAL VITAMINS W/ FOLIC ACID TABLET (FP) PO SCH (09:40)
[2021-07-12] MEDS: NICOTINE 7 MG/24 HOURS TOPICAL PATCH TD SCH (09:40)
[2021-07-12] MEDS: DIGOXIN 0.125 MG TABLET PO SCH (09:41)
[2021-07-12] MEDS: ISOSORBIDE MONONITRATE 30 MG TAB.SR.24H (FP) PO SCH (09:41)
[2021-07-12] MEDS: ACETAMINOPHEN 325 MG TABLET (FP) PO PRN ×3 (09:42→21:48)
[2021-07-12] MEDS ORDERED: COLLOIDAL OATMEAL 1 BAR EACH TP PRN (09:52)
[2021-07-12] MEDS: SPIRONOLACTONE 25 MG TABLET PO SCH (19:06)
[2021-07-12] MEDS ORDERED: ATORVASTATIN CA 40 MG TABLET (FP) ONE (19:23)
[2021-07-12] MEDS: THIAMINE HCL 100 MG TABLET (FP) PO SCH (21:46)
[2021-07-12] MEDS: ATORVASTATIN CA 80 MG TABLET (FP) PO SCH (21:46)
[2021-07-12] MEDS: MELATONIN 5 MG TABLETS PO SCH (21:47)
[2021-07-13] MEDS: FUROSEMIDE 40 MG TABLET (FP) PO SCH (06:47)
[2021-07-13] MEDS: metFORMIN HCL 500 MG TABLET (FP) PO SCH ×2 (06:47→16:53)
[2021-07-13] MEDS: glipiZIDE-XL 2.5 MG TAB.ER.24 PO SCH ×2 (06:48→16:54)
[2021-07-13] MEDS: INSULIN SLIDING SCALE (NOVOLOG) 1 VIAL SQ SCH ×2 (06:48→16:56)
[2021-07-13] MEDS: ACETAMINOPHEN 325 MG TABLET (FP) PO PRN ×3 (09:41→21:15)
[2021-07-13] MEDS: ASPIRIN 81 MG CHEWABLE TABLETS PO SCH (09:42)
[2021-07-13] MEDS: hydrALAZINE HCL 25 MG TABLET (FP) PO SCH ×4 (09:43→21:14)
[2021-07-13] MEDS: DIGOXIN 0.125 MG TABLET PO SCH (09:43)
[2021-07-13] MEDS: ISOSORBIDE MONONITRATE 30 MG TAB.SR.24H (FP) PO SCH (09:43)
[2021-07-13] MEDS: CARVEDILOL 25 MG TABLET (FP) PO SCH ×2 (09:43→21:14)
[2021-07-13] MEDS: NICOTINE 7 MG/24 HOURS TOPICAL PATCH TD SCH (09:44)
[2021-07-13] MEDS: PRENATAL VITAMINS W/ FOLIC ACID TABLET (FP) PO SCH (09:45)
[2021-07-13] MEDS: THIAMINE HCL 100 MG TABLET (FP) PO SCH (21:14)
[2021-07-13] MEDS: ATORVASTATIN CA 80 MG TABLET (FP) PO SCH (21:14)
[2021-07-13] MEDS: MELATONIN 5 MG TABLETS PO SCH (21:14)
[2021-07-14] MEDS: FUROSEMIDE 40 MG TABLET (FP) PO SCH (06:50)
[2021-07-14] MEDS: ACETAMINOPHEN 325 MG TABLET (FP) PO PRN ×3 (06:50→21:18)
[2021-07-14] MEDS: metFORMIN HCL 500 MG TABLET (FP) PO SCH ×2 (06:50→16:47)
[2021-07-14] MEDS: glipiZIDE-XL 2.5 MG TAB.ER.24 PO SCH ×2 (06:54→16:47)
[2021-07-14] MEDS: INSULIN SLIDING SCALE (NOVOLOG) 1 VIAL SQ SCH ×2 (06:55→16:48)
[2021-07-14] MEDS: ASPIRIN 81 MG CHEWABLE TABLETS PO SCH (09:44)
[2021-07-14] MEDS: CARVEDILOL 25 MG TABLET (FP) PO SCH ×2 (09:44→21:20)
[2021-07-14] MEDS: ISOSORBIDE MONONITRATE 30 MG TAB.SR.24H (FP) PO SCH (09:46)
[2021-07-14] MEDS: DIGOXIN 0.125 MG TABLET PO SCH (09:46)
[2021-07-14] MEDS: hydrALAZINE HCL 25 MG TABLET (FP) PO SCH ×3 (09:47→21:20)
[2021-07-14] MEDS: NICOTINE 7 MG/24 HOURS TOPICAL PATCH TD SCH (09:47)
[2021-07-14] MEDS: PRENATAL VITAMINS W/ FOLIC ACID TABLET (FP) PO SCH (09:47)
[2021-07-14] MEDS: METHYL SALICYLATE/MENTHOL OINT 30 GM TUBE TP SCH ×2 (15:37→21:18)
[2021-07-14] MEDS: THIAMINE HCL 100 MG TABLET (FP) PO SCH (21:16)
[2021-07-14] MEDS: ATORVASTATIN CA 80 MG TABLET (FP) PO SCH (21:16)
[2021-07-14] MEDS: MELATONIN 5 MG TABLETS PO SCH (21:17)
[2021-07-14] MEDS: SPIRONOLACTONE 25 MG TABLET PO SCH (21:17)
[2021-07-15] MEDS: metFORMIN HCL 500 MG TABLET (FP) PO SCH ×2 (06:36→16:46)
[2021-07-15] MEDS: FUROSEMIDE 40 MG TABLET (FP) PO SCH (06:37)
[2021-07-15] MEDS: hydrALAZINE HCL 25 MG TABLET (FP) PO SCH ×3 (06:38→21:07)
[2021-07-15] MEDS: glipiZIDE-XL 2.5 MG TAB.ER.24 PO SCH ×2 (06:38→16:46)
[2021-07-15] MEDS: INSULIN SLIDING SCALE (NOVOLOG) 1 VIAL SQ SCH ×2 (06:38→16:49)
[2021-07-15] MEDS: ASPIRIN 81 MG CHEWABLE TABLETS PO SCH (10:04)
[2021-07-15] MEDS: CARVEDILOL 25 MG TABLET (FP) PO SCH ×2 (10:04→21:07)
[2021-07-15] MEDS: DIGOXIN 0.125 MG TABLET PO SCH (10:05)
[2021-07-15] MEDS: METHYL SALICYLATE/MENTHOL OINT 30 GM TUBE TP SCH ×2 (10:44→21:09)
[2021-07-15] MEDS: PRENATAL VITAMINS W/ FOLIC ACID TABLET (FP) PO SCH (10:45)
[2021-07-15] MEDS: NICOTINE 7 MG/24 HOURS TOPICAL PATCH TD SCH (10:45)
[2021-07-15] MEDS: ISOSORBIDE MONONITRATE 30 MG TAB.SR.24H (FP) PO SCH (10:45)
[2021-07-15] MEDS ORDERED: PT OWN MED DRAWER 7, Y5N ONE ×2 (16:47→21:09)
[2021-07-15] MEDS ORDERED: ATORVASTATIN CA 40 MG TABLET (FP) ONE (19:13)
[2021-07-15] MEDS: MELATONIN 5 MG TABLETS PO SCH (21:07)
[2021-07-15] MEDS: THIAMINE HCL 100 MG TABLET (FP) PO SCH (21:07)
[2021-07-15] MEDS: ATORVASTATIN CA 80 MG TABLET (FP) PO SCH (21:08)
[2021-07-16] MEDS: metFORMIN HCL 500 MG TABLET (FP) PO SCH ×2 (06:31→16:54)
[2021-07-16] MEDS: FUROSEMIDE 40 MG TABLET (FP) PO SCH (06:31)
[2021-07-16] MEDS: glipiZIDE-XL 2.5 MG TAB.ER.24 PO SCH ×2 (06:33→16:54)
[2021-07-16] MEDS: hydrALAZINE HCL 25 MG TABLET (FP) PO SCH ×3 (06:33→21:33)
[2021-07-16] MEDS: INSULIN SLIDING SCALE (NOVOLOG) 1 VIAL SQ SCH ×2 (06:34→16:54)
[2021-07-16] MEDS: ASPIRIN 81 MG CHEWABLE TABLETS PO SCH (09:39)
[2021-07-16] MEDS: CARVEDILOL 25 MG TABLET (FP) PO SCH ×2 (09:39→21:33)
[2021-07-16] MEDS: PRENATAL VITAMINS W/ FOLIC ACID TABLET (FP) PO SCH (09:39)
[2021-07-16] MEDS: METHYL SALICYLATE/MENTHOL OINT 30 GM TUBE TP SCH ×2 (09:40→21:34)
[2021-07-16] MEDS: ISOSORBIDE MONONITRATE 30 MG TAB.SR.24H (FP) PO SCH (09:40)
[2021-07-16] MEDS: DIGOXIN 0.125 MG TABLET PO SCH (09:41)
[2021-07-16] MEDS: NICOTINE 7 MG/24 HOURS TOPICAL PATCH TD SCH (09:42)
[2021-07-16] MEDS ORDERED: ATORVASTATIN CA 40 MG TABLET (FP) ONE (19:05)
[2021-07-16] MEDS: SPIRONOLACTONE 25 MG TABLET PO SCH (19:30)
[2021-07-16] MEDS: ATORVASTATIN CA 80 MG TABLET (FP) PO SCH (21:33)
[2021-07-16] MEDS: THIAMINE HCL 100 MG TABLET (FP) PO SCH (21:33)
[2021-07-16] MEDS: MELATONIN 5 MG TABLETS PO SCH (23:12)
[2021-07-17] MEDS: ACETAMINOPHEN 325 MG TABLET (FP) PO PRN ×2 (03:47→21:28)
[2021-07-17] MEDS: hydrALAZINE HCL 25 MG TABLET (FP) PO SCH ×3 (06:45→21:29)
[2021-07-17] MEDS: metFORMIN HCL 500 MG TABLET (FP) PO SCH ×2 (06:45→16:58)
[2021-07-17] MEDS: FUROSEMIDE 40 MG TABLET (FP) PO SCH (06:45)
[2021-07-17] MEDS: INSULIN SLIDING SCALE (NOVOLOG) 1 VIAL SQ SCH ×2 (06:46→17:00)
[2021-07-17] MEDS: glipiZIDE-XL 2.5 MG TAB.ER.24 PO SCH ×2 (06:46→16:59)
[2021-07-17] MEDS: PRENATAL VITAMINS W/ FOLIC ACID TABLET (FP) PO SCH (09:43)
[2021-07-17] MEDS: CARVEDILOL 25 MG TABLET (FP) PO SCH ×2 (09:43→21:27)
[2021-07-17] MEDS: ASPIRIN 81 MG CHEWABLE TABLETS PO SCH (09:43)
[2021-07-17] MEDS: NICOTINE 7 MG/24 HOURS TOPICAL PATCH TD SCH (09:44)
[2021-07-17] MEDS: METHYL SALICYLATE/MENTHOL OINT 30 GM TUBE TP SCH ×2 (09:44→21:28)
[2021-07-17] MEDS ORDERED: PT OWN MED DRAWER 7, Y5N ONE (09:45)
[2021-07-17] MEDS: DIGOXIN 0.125 MG TABLET PO SCH (09:46)
[2021-07-17] MEDS: ISOSORBIDE MONONITRATE 30 MG TAB.SR.24H (FP) PO SCH (09:46)
[2021-07-17] MEDS ORDERED: ATORVASTATIN CA 40 MG TABLET (FP) ONE (19:39)
[2021-07-17] MEDS: ATORVASTATIN CA 80 MG TABLET (FP) PO SCH (21:27)
[2021-07-17] MEDS: THIAMINE HCL 100 MG TABLET (FP) PO SCH (21:27)
[2021-07-17] MEDS: MELATONIN 5 MG TABLETS PO SCH (21:27)
[2021-07-18] MEDS: hydrALAZINE HCL 25 MG TABLET (FP) PO SCH ×3 (06:30→21:24)
[2021-07-18] MEDS: FUROSEMIDE 40 MG TABLET (FP) PO SCH (06:30)
[2021-07-18] MEDS: metFORMIN HCL 500 MG TABLET (FP) PO SCH ×2 (06:31→16:45)
[2021-07-18] MEDS: glipiZIDE-XL 2.5 MG TAB.ER.24 PO SCH ×2 (06:31→16:45)
[2021-07-18] MEDS: INSULIN SLIDING SCALE (NOVOLOG) 1 VIAL SQ SCH ×2 (06:31→16:46)
[2021-07-18] MEDS ORDERED: PT OWN MED DRAWER 7, Y5N ONE (09:46)
[2021-07-18] MEDS: PRENATAL VITAMINS W/ FOLIC ACID TABLET (FP) PO SCH (10:01)
[2021-07-18] MEDS: ASPIRIN 81 MG CHEWABLE TABLETS PO SCH (10:03)
[2021-07-18] MEDS: CARVEDILOL 25 MG TABLET (FP) PO SCH ×2 (10:03→21:22)
[2021-07-18] MEDS: METHYL SALICYLATE/MENTHOL OINT 30 GM TUBE TP SCH ×2 (10:03→21:24)
[2021-07-18] MEDS: ISOSORBIDE MONONITRATE 30 MG TAB.SR.24H (FP) PO SCH (10:04)
[2021-07-18] MEDS: DIGOXIN 0.125 MG TABLET PO SCH (10:05)
[2021-07-18] MEDS: NICOTINE 7 MG/24 HOURS TOPICAL PATCH TD SCH (10:06)
[2021-07-18] MEDS ORDERED: ATORVASTATIN CA 40 MG TABLET (FP) ONE (18:53)
[2021-07-18] MEDS: THIAMINE HCL 100 MG TABLET (FP) PO SCH (21:22)
[2021-07-18] MEDS: ATORVASTATIN CA 80 MG TABLET (FP) PO SCH (21:22)
[2021-07-18] MEDS: MELATONIN 5 MG TABLETS PO SCH (21:22)
[2021-07-18] MEDS: ACETAMINOPHEN 325 MG TABLET (FP) PO PRN (21:23)
[2021-07-19] MEDS: metFORMIN HCL 500 MG TABLET (FP) PO SCH ×2 (06:26→17:20)
[2021-07-19] MEDS: hydrALAZINE HCL 25 MG TABLET (FP) PO SCH ×3 (06:26→21:08)
[2021-07-19] MEDS: FUROSEMIDE 40 MG TABLET (FP) PO SCH (06:26)
[2021-07-19] MEDS: glipiZIDE-XL 2.5 MG TAB.ER.24 PO SCH ×2 (06:27→17:20)
[2021-07-19] MEDS: INSULIN SLIDING SCALE (NOVOLOG) 1 VIAL SQ SCH ×2 (06:28→17:02)
[2021-07-19] MEDS: NICOTINE 7 MG/24 HOURS TOPICAL PATCH TD SCH (09:41)
[2021-07-19] MEDS: PRENATAL VITAMINS W/ FOLIC ACID TABLET (FP) PO SCH (09:41)
[2021-07-19] MEDS: ASPIRIN 81 MG CHEWABLE TABLETS PO SCH (09:41)
[2021-07-19] MEDS: METHYL SALICYLATE/MENTHOL OINT 30 GM TUBE TP SCH ×2 (09:41→21:09)
[2021-07-19] MEDS: CARVEDILOL 25 MG TABLET (FP) PO SCH ×2 (09:41→21:08)
[2021-07-19] MEDS: DIGOXIN 0.125 MG TABLET PO SCH (09:43)
[2021-07-19] MEDS: ISOSORBIDE MONONITRATE 30 MG TAB.SR.24H (FP) PO SCH (09:43)
[2021-07-19] MEDS ORDERED: PT OWN MED DRAWER 7, Y5N ONE (09:44)
[2021-07-19] MEDS: SPIRONOLACTONE 25 MG TABLET PO SCH (19:51)
[2021-07-19] MEDS ORDERED: ATORVASTATIN CA 40 MG TABLET (FP) ONE (20:00)
[2021-07-19] MEDS: MELATONIN 5 MG TABLETS PO SCH (21:07)
[2021-07-19] MEDS: THIAMINE HCL 100 MG TABLET (FP) PO SCH (21:08)
[2021-07-19] MEDS: ATORVASTATIN CA 80 MG TABLET (FP) PO SCH (21:08)
[2021-07-20] MEDS: hydrALAZINE HCL 25 MG TABLET (FP) PO SCH (06:17)
[2021-07-20] MEDS: metFORMIN HCL 500 MG TABLET (FP) PO SCH (06:17)
[2021-07-20] MEDS: INSULIN SLIDING SCALE (NOVOLOG) 1 VIAL SQ SCH (06:18)
[2021-07-20] MEDS: FUROSEMIDE 40 MG TABLET (FP) PO SCH (06:18)
[2021-07-20] MEDS: glipiZIDE-XL 2.5 MG TAB.ER.24 PO SCH (06:18)
[2021-07-20 06:39] VITALS: TEMP 98.3
[2021-07-20] MEDS: CARVEDILOL 25 MG TABLET (FP) PO SCH (10:34)
[2021-07-20] MEDS: ASPIRIN 81 MG CHEWABLE TABLETS PO SCH (10:34)
[2021-07-20] MEDS: METHYL SALICYLATE/MENTHOL OINT 30 GM TUBE TP SCH (10:34)
[2021-07-20] MEDS: PRENATAL VITAMINS W/ FOLIC ACID TABLET (FP) PO SCH (10:34)
[2021-07-20] MEDS: DIGOXIN 0.125 MG TABLET PO SCH (10:36)
[2021-07-20] MEDS: ISOSORBIDE MONONITRATE 30 MG TAB.SR.24H (FP) PO SCH (10:37)
[2021-07-20 10:38] VITALS: PULSE 70
[2021-07-20] MEDS: NICOTINE 7 MG/24 HOURS TOPICAL PATCH TD SCH (10:38)
[2021-07-20 11:26] VITALS: BP 129/78
== END 2021-07-20 12:00 | disposition home or self-care (01) | DRG 895 ==
LOC: YASAS 17:43 → Y5N 19:29
PROVIDERS: ADMIT Allergy & Immunology; ATTEND Allergy & Immunology
PROC: HZ42ZZZ Group Counseling for Substance Abuse Treatment, Cognitive-Behavioral (ICD-10-PCS; principal; 2021-07-07)
DX: F10.20 Alcohol dependence, uncomplicated (principal); F14.20 Cocaine dependence, uncomplicated; I69.851 Hemiplegia and hemiparesis following other cerebrovascular disease affecting right dominant side; I11.0 Hypertensive heart disease with heart failure; I50.9 Heart failure, unspecified; I48.91 Unspecified atrial fibrillation; E11.9 Type 2 diabetes mellitus without complications; Z79.84 Long term (current) use of oral hypoglycemic drugs; I69.898 Other sequelae of other cerebrovascular disease; R26.89 Other abnormalities of gait and mobility; R76.11 Nonspecific reaction to tuberculin skin test without active tuberculosis; Z87.891 Personal history of nicotine dependence; Z99.89 Dependence on other enabling machines and devices
CPT/HCPCS: 36415; 81003; 82565; 82962; 84520; C9803; U0003; U0005

== ENCOUNTER 2022-09-06 12:42 | Inpatient (IN) | payer OTHER ==
[2022-09-06 13:43] VITALS: BMI 25.1
[2022-09-06] MEDS ORDERED: ACETAMINOPHEN 325 MG TABLET (FP) PO PRN ×2 (15:43)
[2022-09-06] MEDS ORDERED: BENZOCAINE/MENTHOL (CHLORASEPTIC ) LOZENGE MM PRN (15:43)
[2022-09-06] MEDS ORDERED: MAG HYDROX/AL HYDROX/SIMETH 30 ML UNIT-DOSE CUP PO PRN (15:43)
[2022-09-06] MEDS ORDERED: IBUPROFEN 600 MG TABLET (FP) PO PRN (15:43)
[2022-09-06] MEDS ORDERED: hydrOXYzine PAMOATE 25 MG CAPSULE (FP) PO PRN (15:43)
[2022-09-06] MEDS ORDERED: NICOTINE 10 MG CARTRIDGE (INHALER) IH PRN (15:43)
[2022-09-06] MEDS ORDERED: NALOXONE HCL (KLOXXADO) 8 MG SPRAY NS PRN (15:43)
[2022-09-06] MEDS ORDERED: POLYETHYLENE GLYCOL (HEALTHYLAX) 3350 17 GM PACKET PO PRN (15:43)
[2022-09-06] MEDS ORDERED: LORazepam 2 MG TABLET PO ONE (15:43)
[2022-09-06] MEDS ORDERED: LORazepam 1 MG TABLET PO PRN (15:43)
[2022-09-06] MEDS ORDERED: BISMUTH SUBSALICYLATE 524 MG/30 ML PO PRN (15:43)
[2022-09-06] MEDS ORDERED: DICYCLOMINE HCL 10 MG CAPSULE PO PRN (15:43)
[2022-09-06] MEDS ORDERED: LOPERAMIDE HCL 2 MG CAPSULE PO PRN (15:43)
[2022-09-06] MEDS ORDERED: MAGNESIUM HYDROX 2400MG/30ML ORAL SUSPENSION 30 ML CUP PO PRN (15:43)
[2022-09-06] MEDS ORDERED: ONDANSETRON *ODT* 4 MG TABLET SL PRN (15:43)
[2022-09-06] MEDS ORDERED: IBUPROFEN 400 MG TABLET (FP) PO PRN (15:43)
[2022-09-06] MEDS ORDERED: LORazepam 2 MG TABLET ONE (16:33)
[2022-09-06] MEDS ORDERED: ACETAMINOPHEN 325 MG TABLET (FP) ONE (16:35)
[2022-09-06] MEDS: NICOTINE 14 MG/24 HOURS TOPICAL PATCH TD SCH (17:48)
[2022-09-06] MEDS: PRENATAL VITAMINS W/ FOLIC ACID TABLET (FP) PO SCH (17:49)
[2022-09-06] MEDS: LORazepam 2 MG TABLET PO SCH ×2 (17:50→22:58)
[2022-09-06] MEDS: METHOCARBAMOL 500 MG TABLET PO PRN (22:58)
[2022-09-06] MEDS: MELATONIN 5 MG TABLETS PO SCH (23:08)
[2022-09-06] MEDS: THIAMINE HCL 100 MG TABLET (FP) PO SCH (23:08)
[2022-09-06] MEDS: ATORVASTATIN CA 80 MG TABLET (FP) PO SCH (23:09)
[2022-09-06] MEDS: CARVEDILOL 25 MG TABLET (FP) PO SCH (23:09)
[2022-09-07] MEDS: LORazepam 2 MG TABLET PO SCH ×4 (06:01→22:00)
[2022-09-07] MEDS: FUROSEMIDE 40 MG TABLET (FP) PO SCH (10:47)
[2022-09-07] MEDS: PRENATAL VITAMINS W/ FOLIC ACID TABLET (FP) PO SCH (10:47)
[2022-09-07] MEDS: CARVEDILOL 25 MG TABLET (FP) PO SCH ×2 (10:47→21:59)
[2022-09-07] MEDS: ASPIRIN 81 MG CHEWABLE TABLETS PO SCH (10:47)
[2022-09-07] MEDS: NICOTINE 14 MG/24 HOURS TOPICAL PATCH TD SCH (10:48)
[2022-09-07] MEDS: DIGOXIN 0.125 MG TABLET PO SCH (10:48)
[2022-09-07 10:56] LABS: HEMATOCRIT 36.8 % (35.4-49); HEMOGLOBIN 12.8 GM/dL (11.7-16.9); MCH 31.9 pg (25.7-33.7); MCHC 34.8 g/dl (32.0-35.9); MEAN CELL VOLUME 91.6 fl (80-96); MEAN PLT VOLUME 9.6 fl (7.5-11.1); PLATELET COUNT 159 10^3/uL (134-434); RBC 4.02 M/mm3 (4.00-5.60); RDW 13.3 % (11.9-15.9); WHITE BLOOD COUNT 3.4 K/mm3 (4.0-10.0)
[2022-09-07 11:44] LABS: BLOOD UREA NITROGEN 24.8 mg/dL (7-18); CALCIUM 9.1 mg/dL (8.5-10.1)
[2022-09-07 11:45] LABS: ALBUMIN 3.7 g/dl (3.4-5.0)
[2022-09-07 11:47] LABS: CREATININE 1.4 mg/dL (0.55-1.3)
[2022-09-07 11:48] LABS: BILIRUBIN,TOTAL 1.1 mg/dL (0.2-1)
[2022-09-07 11:49] LABS: TOT PROT 6.8 g/dl (6.4-8.2)
[2022-09-07] MEDS: METFORMIN HCL PO SCH (17:39)
[2022-09-07] MEDS: [UNRECOGNIZED DRUG - OTHER] PO SCH (17:39)
[2022-09-07] MEDS: EMPAGLIFLOZIN PO SCH (17:39)
[2022-09-07] MEDS: THIAMINE HCL 100 MG TABLET (FP) PO SCH (21:57)
[2022-09-07] MEDS: MELATONIN 5 MG TABLETS PO SCH (21:57)
[2022-09-07] MEDS: METHOCARBAMOL 500 MG TABLET PO PRN (21:58)
[2022-09-07] MEDS: ATORVASTATIN CA 80 MG TABLET (FP) PO SCH (21:59)
[2022-09-08] MEDS: LORazepam 1 MG TABLET PO SCH ×4 (06:22→22:42)
[2022-09-08] MEDS: [UNRECOGNIZED DRUG - OTHER] PO SCH ×2 (07:59→17:59)
[2022-09-08] MEDS: METFORMIN HCL PO SCH ×2 (07:59→17:59)
[2022-09-08] MEDS: EMPAGLIFLOZIN PO SCH ×2 (07:59→17:59)
[2022-09-08] MEDS: FUROSEMIDE 40 MG TABLET (FP) PO SCH (10:47)
[2022-09-08] MEDS: ASPIRIN 81 MG CHEWABLE TABLETS PO SCH (10:47)
[2022-09-08] MEDS: CARVEDILOL 25 MG TABLET (FP) PO SCH ×2 (10:57→22:43)
[2022-09-08] MEDS: PRENATAL VITAMINS W/ FOLIC ACID TABLET (FP) PO SCH (10:58)
[2022-09-08] MEDS: NICOTINE 14 MG/24 HOURS TOPICAL PATCH TD SCH (10:58)
[2022-09-08] MEDS: DIGOXIN 0.125 MG TABLET PO SCH (11:01)
[2022-09-08] MEDS: MELATONIN 5 MG TABLETS PO SCH (22:42)
[2022-09-08] MEDS: THIAMINE HCL 100 MG TABLET (FP) PO SCH (22:42)
[2022-09-08] MEDS: ATORVASTATIN CA 80 MG TABLET (FP) PO SCH (22:42)
[2022-09-09] MEDS ORDERED: LORazepam 0.5 MG TABLET PO PRN
[2022-09-09] MEDS: LORazepam 0.5 MG TABLET PO SCH ×4 (05:55→22:43)
[2022-09-09] MEDS: METFORMIN HCL PO SCH ×2 (07:01→17:05)
[2022-09-09] MEDS: [UNRECOGNIZED DRUG - OTHER] PO SCH ×2 (07:01→17:05)
[2022-09-09] MEDS: EMPAGLIFLOZIN PO SCH ×2 (07:01→17:05)
[2022-09-09] MEDS: FUROSEMIDE 40 MG TABLET (FP) PO SCH (10:40)
[2022-09-09] MEDS: CARVEDILOL 25 MG TABLET (FP) PO SCH ×2 (10:40→22:42)
[2022-09-09] MEDS: PRENATAL VITAMINS W/ FOLIC ACID TABLET (FP) PO SCH (10:40)
[2022-09-09] MEDS: DIGOXIN 0.125 MG TABLET PO SCH (10:40)
[2022-09-09] MEDS: ASPIRIN 81 MG CHEWABLE TABLETS PO SCH (10:40)
[2022-09-09] MEDS: NICOTINE 14 MG/24 HOURS TOPICAL PATCH TD SCH (10:41)
[2022-09-09] MEDS: ATORVASTATIN CA 80 MG TABLET (FP) PO SCH (22:43)
[2022-09-09] MEDS: THIAMINE HCL 100 MG TABLET (FP) PO SCH (22:43)
[2022-09-09] MEDS: MELATONIN 5 MG TABLETS PO SCH (22:43)
[2022-09-10] MEDS ORDERED: LORazepam 0.5 MG TABLET PO ONE (05:00)
[2022-09-10 06:52] VITALS: RESP 16
[2022-09-10] MEDS: METFORMIN HCL PO SCH (07:17)
[2022-09-10] MEDS: [UNRECOGNIZED DRUG - OTHER] PO SCH (07:17)
[2022-09-10] MEDS: EMPAGLIFLOZIN PO SCH (07:17)
[2022-09-10 09:57] VITALS: PULSE 57
[2022-09-10] MEDS: ASPIRIN 81 MG CHEWABLE TABLETS PO SCH (10:48)
[2022-09-10] MEDS: CARVEDILOL 25 MG TABLET (FP) PO SCH (10:48)
[2022-09-10] MEDS: DIGOXIN 0.125 MG TABLET PO SCH (10:48)
[2022-09-10] MEDS: FUROSEMIDE 40 MG TABLET (FP) PO SCH (10:49)
[2022-09-10] MEDS: NICOTINE 14 MG/24 HOURS TOPICAL PATCH TD SCH (10:49)
[2022-09-10] MEDS: PRENATAL VITAMINS W/ FOLIC ACID TABLET (FP) PO SCH (10:49)
[2022-09-10 13:21] VITALS: BP 110/67; TEMP 97.5
== END 2022-09-10 13:25 | disposition other institution (70) | DRG 897 ==
LOC: YASAS 12:42 → Y3N 15:50
PROVIDERS: ADMIT Allergy & Immunology; ATTEND Surgery
PROC: HZ2ZZZZ Detoxification Services for Substance Abuse Treatment (ICD-10-PCS; principal; 2022-09-06)
DX: F10.230 Alcohol dependence with withdrawal, uncomplicated (principal); F14.20 Cocaine dependence, uncomplicated; F12.20 Cannabis dependence, uncomplicated; F17.210 Nicotine dependence, cigarettes, uncomplicated; I11.0 Hypertensive heart disease with heart failure; I50.9 Heart failure, unspecified; I25.2 Old myocardial infarction; E11.9 Type 2 diabetes mellitus without complications; Z79.84 Long term (current) use of oral hypoglycemic drugs; I69.831 Monoplegia of upper limb following other cerebrovascular disease affecting right dominant side; Z88.8 Allergy status to other drugs, medicaments and biological substances
CPT/HCPCS: 36415; 71046-TC-FY; 80053; 82140; 82962; 85027; 86780; 87811; C9803-CS; U0003; U0005

== ENCOUNTER 2022-09-10 11:45 | Inpatient (IN) | payer OTHER ==
[2022-09-10] MEDS ORDERED: hydrOXYzine PAMOATE 25 MG CAPSULE (FP) PO PRN (17:17)
[2022-09-10] MEDS ORDERED: NICOTINE 10 MG CARTRIDGE (INHALER) IH PRN (17:17)
[2022-09-10] MEDS ORDERED: LOPERAMIDE HCL 2 MG CAPSULE PO PRN (17:17)
[2022-09-10] MEDS ORDERED: P-EPHED 60MG/TRIPROLIDI 2.5MG TABLET PO PRN (17:17)
[2022-09-10] MEDS ORDERED: MAGNESIUM HYDROX 2400MG/30ML ORAL SUSPENSION 30 ML CUP PO PRN (17:17)
[2022-09-10] MEDS ORDERED: guaiFENesin 200 MG/10 ML 10 ML UNIT-DOSE CUPS PO PRN (17:17)
[2022-09-10] MEDS ORDERED: IBUPROFEN 400 MG TABLET (FP) PO PRN (17:17)
[2022-09-10] MEDS ORDERED: POLYETHYLENE GLYCOL (HEALTHYLAX) 3350 17 GM PACKET PO PRN (17:17)
[2022-09-10] MEDS ORDERED: ACETAMINOPHEN 325 MG TABLET (FP) PO PRN (17:17)
[2022-09-10] MEDS ORDERED: BENZOCAINE/MENTHOL (CHLORASEPTIC ) LOZENGE MM PRN (17:17)
[2022-09-10] MEDS: ATORVASTATIN CA 40 MG TABLET (FP) PO SCH (21:38)
[2022-09-10] MEDS: CARVEDILOL 25 MG TABLET (FP) PO SCH (21:38)
[2022-09-10] MEDS: THIAMINE HCL 100 MG TABLET (FP) PO SCH (21:38)
[2022-09-10] MEDS: MELATONIN 5 MG TABLETS PO SCH (21:38)
[2022-09-11] MEDS: FUROSEMIDE 40 MG TABLET (FP) PO SCH (10:28)
[2022-09-11] MEDS: NICOTINE 7 MG/24 HOURS TOPICAL PATCH TD SCH (10:29)
[2022-09-11] MEDS: CARVEDILOL 25 MG TABLET (FP) PO SCH ×2 (10:29→21:51)
[2022-09-11] MEDS: PRENATAL VITAMINS W/ FOLIC ACID TABLET (FP) PO SCH (10:29)
[2022-09-11] MEDS: ASPIRIN 81 MG CHEWABLE TABLETS PO SCH (10:29)
[2022-09-11] MEDS: DIGOXIN 0.125 MG TABLET PO SCH (10:31)
[2022-09-11] MEDS: METFORMIN HCL PO SCH ×2 (17:14→18:56)
[2022-09-11] MEDS: EMPAGLIFLOZIN PO SCH ×2 (17:14→18:56)
[2022-09-11] MEDS: [UNRECOGNIZED DRUG - OTHER] PO SCH ×2 (17:14→18:56)
[2022-09-11] MEDS ORDERED: ATORVASTATIN CA 20 MG TABLET (FP) ONE (19:16)
[2022-09-11] MEDS: ATORVASTATIN CA 40 MG TABLET (FP) PO SCH (21:51)
[2022-09-11] MEDS: THIAMINE HCL 100 MG TABLET (FP) PO SCH (21:52)
[2022-09-11] MEDS: MELATONIN 5 MG TABLETS PO SCH (21:52)
[2022-09-12] MEDS: METFORMIN HCL PO SCH ×3 (06:21→16:46)
[2022-09-12] MEDS: EMPAGLIFLOZIN PO SCH ×3 (06:21→16:46)
[2022-09-12] MEDS: [UNRECOGNIZED DRUG - OTHER] PO SCH ×3 (06:21→16:46)
[2022-09-12] MEDS: ASPIRIN 81 MG CHEWABLE TABLETS PO SCH (09:27)
[2022-09-12] MEDS: FUROSEMIDE 40 MG TABLET (FP) PO SCH (09:27)
[2022-09-12] MEDS: PRENATAL VITAMINS W/ FOLIC ACID TABLET (FP) PO SCH (09:27)
[2022-09-12] MEDS: NICOTINE 7 MG/24 HOURS TOPICAL PATCH TD SCH (09:27)
[2022-09-12] MEDS: CARVEDILOL 25 MG TABLET (FP) PO SCH ×2 (09:27→21:18)
[2022-09-12] MEDS: DIGOXIN 0.125 MG TABLET PO SCH (09:27)
[2022-09-12] MEDS: SPIRONOLACTONE 25 MG TABLET PO SCH (10:29)
[2022-09-12] MEDS ORDERED: SPIRONOLACTONE 25 MG TABLET PO SCH (17:13)
[2022-09-12] MEDS: ATORVASTATIN CA 40 MG TABLET (FP) PO SCH (21:18)
[2022-09-12] MEDS: MELATONIN 5 MG TABLETS PO SCH (21:18)
[2022-09-12] MEDS: THIAMINE HCL 100 MG TABLET (FP) PO SCH (21:18)
[2022-09-13] MEDS: METFORMIN HCL PO SCH ×2 (06:25→17:43)
[2022-09-13] MEDS: [UNRECOGNIZED DRUG - OTHER] PO SCH ×2 (06:25→17:43)
[2022-09-13] MEDS: EMPAGLIFLOZIN PO SCH ×2 (06:25→17:43)
[2022-09-13] MEDS: FUROSEMIDE 40 MG TABLET (FP) PO SCH (10:16)
[2022-09-13] MEDS: PRENATAL VITAMINS W/ FOLIC ACID TABLET (FP) PO SCH (10:16)
[2022-09-13] MEDS: ASPIRIN 81 MG CHEWABLE TABLETS PO SCH (10:16)
[2022-09-13] MEDS: CARVEDILOL 25 MG TABLET (FP) PO SCH ×2 (10:16→21:34)
[2022-09-13] MEDS: NICOTINE 7 MG/24 HOURS TOPICAL PATCH TD SCH (10:19)
[2022-09-13] MEDS: DIGOXIN 0.125 MG TABLET PO SCH (10:19)
[2022-09-13] MEDS ORDERED: COLLOIDAL OATMEAL 1 BAR EACH TP PRN (11:51)
[2022-09-13] MEDS: MELATONIN 5 MG TABLETS PO SCH (21:34)
[2022-09-13] MEDS: THIAMINE HCL 100 MG TABLET (FP) PO SCH (21:34)
[2022-09-13] MEDS: ATORVASTATIN CA 40 MG TABLET (FP) PO SCH (21:34)
[2022-09-14] MEDS: EMPAGLIFLOZIN PO SCH ×2 (06:03→16:33)
[2022-09-14] MEDS: [UNRECOGNIZED DRUG - OTHER] PO SCH ×2 (06:03→16:33)
[2022-09-14] MEDS: METFORMIN HCL PO SCH ×2 (06:03→16:33)
[2022-09-14] MEDS: PRENATAL VITAMINS W/ FOLIC ACID TABLET (FP) PO SCH (10:24)
[2022-09-14] MEDS: CARVEDILOL 25 MG TABLET (FP) PO SCH ×2 (10:24→21:18)
[2022-09-14] MEDS: ASPIRIN 81 MG CHEWABLE TABLETS PO SCH (10:24)
[2022-09-14] MEDS: SPIRONOLACTONE 25 MG TABLET PO SCH (10:25)
[2022-09-14] MEDS: DIGOXIN 0.125 MG TABLET PO SCH (10:25)
[2022-09-14] MEDS: FUROSEMIDE 40 MG TABLET (FP) PO SCH (10:25)
[2022-09-14] MEDS: NICOTINE 7 MG/24 HOURS TOPICAL PATCH TD SCH (11:08)
[2022-09-14] MEDS: MELATONIN 5 MG TABLETS PO SCH (21:18)
[2022-09-14] MEDS: THIAMINE HCL 100 MG TABLET (FP) PO SCH (21:18)
[2022-09-14] MEDS: ATORVASTATIN CA 40 MG TABLET (FP) PO SCH (21:19)
[2022-09-15] MEDS: EMPAGLIFLOZIN PO SCH ×2 (06:36→16:27)
[2022-09-15] MEDS: [UNRECOGNIZED DRUG - OTHER] PO SCH ×2 (06:36→16:27)
[2022-09-15] MEDS: METFORMIN HCL PO SCH ×2 (06:36→16:27)
[2022-09-15] MEDS: CARVEDILOL 25 MG TABLET (FP) PO SCH ×2 (10:26→21:18)
[2022-09-15] MEDS: FUROSEMIDE 40 MG TABLET (FP) PO SCH (10:26)
[2022-09-15] MEDS: ASPIRIN 81 MG CHEWABLE TABLETS PO SCH (10:26)
[2022-09-15] MEDS: DIGOXIN 0.125 MG TABLET PO SCH (10:26)
[2022-09-15] MEDS: PRENATAL VITAMINS W/ FOLIC ACID TABLET (FP) PO SCH (10:27)
[2022-09-15] MEDS: NICOTINE 7 MG/24 HOURS TOPICAL PATCH TD SCH (10:27)
[2022-09-15 14:38] LABS: CALCIUM 8.9 mg/dL (8.5-10.1)
[2022-09-15 14:39] LABS: ALBUMIN 3.8 g/dl (3.4-5.0); BLOOD UREA NITROGEN 31.6 mg/dL (7-18); MAGNESIUM 2.4 mg/dL (1.8-2.4)
[2022-09-15 14:42] LABS: CREATININE 1.3 mg/dL (0.55-1.3)
[2022-09-15 14:43] LABS: TOT PROT 6.8 g/dl (6.4-8.2)
[2022-09-15 14:44] LABS: BILIRUBIN,TOTAL 0.6 mg/dL (0.2-1)
[2022-09-15] MEDS: MELATONIN 5 MG TABLETS PO SCH (21:18)
[2022-09-15] MEDS: THIAMINE HCL 100 MG TABLET (FP) PO SCH (21:18)
[2022-09-15] MEDS: ATORVASTATIN CA 40 MG TABLET (FP) PO SCH (21:18)
[2022-09-15] MEDS: MAG HYDROX/AL HYDROX/SIMETH 30 ML UNIT-DOSE CUP PO PRN (21:19)
[2022-09-16] MEDS: METFORMIN HCL PO SCH ×2 (06:41→16:48)
[2022-09-16] MEDS: EMPAGLIFLOZIN PO SCH ×2 (06:41→16:48)
[2022-09-16] MEDS: [UNRECOGNIZED DRUG - OTHER] PO SCH ×2 (06:41→16:48)
[2022-09-16] MEDS: CARVEDILOL 25 MG TABLET (FP) PO SCH ×2 (10:05→21:28)
[2022-09-16] MEDS: PRENATAL VITAMINS W/ FOLIC ACID TABLET (FP) PO SCH (10:05)
[2022-09-16] MEDS: ASPIRIN 81 MG CHEWABLE TABLETS PO SCH (10:05)
[2022-09-16] MEDS: SPIRONOLACTONE 25 MG TABLET PO SCH (10:05)
[2022-09-16] MEDS: FUROSEMIDE 40 MG TABLET (FP) PO SCH (10:05)
[2022-09-16] MEDS: NICOTINE 7 MG/24 HOURS TOPICAL PATCH TD SCH (10:06)
[2022-09-16] MEDS: DIGOXIN 0.125 MG TABLET PO SCH (10:08)
[2022-09-16] MEDS: MELATONIN 5 MG TABLETS PO SCH (21:28)
[2022-09-16] MEDS: ATORVASTATIN CA 40 MG TABLET (FP) PO SCH (21:28)
[2022-09-16] MEDS: THIAMINE HCL 100 MG TABLET (FP) PO SCH (21:28)
[2022-09-17] MEDS: EMPAGLIFLOZIN PO SCH ×2 (06:18→16:22)
[2022-09-17] MEDS: [UNRECOGNIZED DRUG - OTHER] PO SCH ×2 (06:18→16:22)
[2022-09-17] MEDS: METFORMIN HCL PO SCH ×2 (06:18→16:22)
[2022-09-17] MEDS: PRENATAL VITAMINS W/ FOLIC ACID TABLET (FP) PO SCH (10:30)
[2022-09-17] MEDS: DIGOXIN 0.125 MG TABLET PO SCH (10:30)
[2022-09-17] MEDS: NICOTINE 7 MG/24 HOURS TOPICAL PATCH TD SCH (10:30)
[2022-09-17] MEDS: FUROSEMIDE 40 MG TABLET (FP) PO SCH (10:31)
[2022-09-17] MEDS: ASPIRIN 81 MG CHEWABLE TABLETS PO SCH (10:31)
[2022-09-17] MEDS: CARVEDILOL 25 MG TABLET (FP) PO SCH ×2 (10:31→21:24)
[2022-09-17] MEDS: THIAMINE HCL 100 MG TABLET (FP) PO SCH (21:23)
[2022-09-17] MEDS: MELATONIN 5 MG TABLETS PO SCH (21:23)
[2022-09-17] MEDS: ATORVASTATIN CA 40 MG TABLET (FP) PO SCH (21:24)
[2022-09-18] MEDS: METFORMIN HCL PO SCH ×2 (06:33→16:26)
[2022-09-18] MEDS: EMPAGLIFLOZIN PO SCH ×2 (06:33→16:26)
[2022-09-18] MEDS: [UNRECOGNIZED DRUG - OTHER] PO SCH ×2 (06:33→16:26)
[2022-09-18] MEDS: PRENATAL VITAMINS W/ FOLIC ACID TABLET (FP) PO SCH (09:56)
[2022-09-18] MEDS: NICOTINE 7 MG/24 HOURS TOPICAL PATCH TD SCH (09:56)
[2022-09-18] MEDS: DIGOXIN 0.125 MG TABLET PO SCH (09:57)
[2022-09-18] MEDS: CARVEDILOL 25 MG TABLET (FP) PO SCH ×2 (09:58→21:27)
[2022-09-18] MEDS: FUROSEMIDE 40 MG TABLET (FP) PO SCH (09:58)
[2022-09-18] MEDS: ASPIRIN 81 MG CHEWABLE TABLETS PO SCH (09:58)
[2022-09-18] MEDS: ATORVASTATIN CA 40 MG TABLET (FP) PO SCH (21:27)
[2022-09-18] MEDS: MAG HYDROX/AL HYDROX/SIMETH 30 ML UNIT-DOSE CUP PO PRN (21:27)
[2022-09-18] MEDS: MELATONIN 5 MG TABLETS PO SCH (21:27)
[2022-09-18] MEDS: THIAMINE HCL 100 MG TABLET (FP) PO SCH (21:27)
[2022-09-19] MEDS: METFORMIN HCL PO SCH ×2 (06:24→16:28)
[2022-09-19] MEDS: [UNRECOGNIZED DRUG - OTHER] PO SCH ×2 (06:24→16:28)
[2022-09-19] MEDS: EMPAGLIFLOZIN PO SCH ×2 (06:24→16:28)
[2022-09-19 06:49] VITALS: TEMP 97.5
[2022-09-19 08:59] VITALS: RESP 18
[2022-09-19] MEDS: PRENATAL VITAMINS W/ FOLIC ACID TABLET (FP) PO SCH (10:31)
[2022-09-19] MEDS: SPIRONOLACTONE 25 MG TABLET PO SCH (10:32)
[2022-09-19] MEDS: ASPIRIN 81 MG CHEWABLE TABLETS PO SCH (10:32)
[2022-09-19] MEDS: CARVEDILOL 25 MG TABLET (FP) PO SCH ×2 (10:32→21:34)
[2022-09-19] MEDS: FUROSEMIDE 40 MG TABLET (FP) PO SCH (10:33)
[2022-09-19] MEDS: DIGOXIN 0.125 MG TABLET PO SCH (10:34)
[2022-09-19] MEDS: NICOTINE 7 MG/24 HOURS TOPICAL PATCH TD SCH (10:35)
[2022-09-19] MEDS: ATORVASTATIN CA 40 MG TABLET (FP) PO SCH (21:34)
[2022-09-19] MEDS: THIAMINE HCL 100 MG TABLET (FP) PO SCH (21:35)
[2022-09-19] MEDS: MELATONIN 5 MG TABLETS PO SCH (21:35)
[2022-09-19] MEDS: MAG HYDROX/AL HYDROX/SIMETH 30 ML UNIT-DOSE CUP PO PRN (21:37)
[2022-09-20] MEDS: [UNRECOGNIZED DRUG - OTHER] PO SCH (06:50)
[2022-09-20] MEDS: EMPAGLIFLOZIN PO SCH (06:50)
[2022-09-20] MEDS: METFORMIN HCL PO SCH (06:50)
[2022-09-20 09:10] VITALS: BP 121/89; PULSE 100
[2022-09-20] MEDS: ASPIRIN 81 MG CHEWABLE TABLETS PO SCH (10:04)
[2022-09-20] MEDS: PRENATAL VITAMINS W/ FOLIC ACID TABLET (FP) PO SCH (10:04)
[2022-09-20] MEDS: CARVEDILOL 25 MG TABLET (FP) PO SCH (10:05)
[2022-09-20] MEDS: FUROSEMIDE 40 MG TABLET (FP) PO SCH (10:05)
[2022-09-20] MEDS: DIGOXIN 0.125 MG TABLET PO SCH (10:06)
[2022-09-20] MEDS: NICOTINE 7 MG/24 HOURS TOPICAL PATCH TD SCH (10:22)
== END 2022-09-20 11:04 | disposition home or self-care (01) | DRG 895 ==
LOC: YASAS 11:45 → Y3W 11:50
PROVIDERS: ADMIT Allergy & Immunology; ATTEND Psychiatry & Neurology Pain Medicine
PROC: HZ42ZZZ Group Counseling for Substance Abuse Treatment, Cognitive-Behavioral (ICD-10-PCS; principal; 2022-09-10)
DX: F10.20 Alcohol dependence, uncomplicated (principal); F14.20 Cocaine dependence, uncomplicated; I48.92 Unspecified atrial flutter; F12.20 Cannabis dependence, uncomplicated; F17.210 Nicotine dependence, cigarettes, uncomplicated; I11.0 Hypertensive heart disease with heart failure; I50.9 Heart failure, unspecified; I25.2 Old myocardial infarction; R00.1 Bradycardia, unspecified; E11.9 Type 2 diabetes mellitus without complications; Z79.84 Long term (current) use of oral hypoglycemic drugs; I69.831 Monoplegia of upper limb following other cerebrovascular disease affecting right dominant side; Z88.8 Allergy status to other drugs, medicaments and biological substances
CPT/HCPCS: 36415; 80053; 80162; 82962; 83735; 86803; 93005; 93010